=== PATIENT | female | born 2000 | race Caucasian/White ===

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

== ENCOUNTER 2023-01-13 13:22 | Observation (INO) | payer OTHER ==
[2023-01-13] MEDS ORDERED: SODIUM CHLORIDE 0.9% 1,000 ML IV ONE (13:51)
--- NOTE | 2023-01-13 13:54 | ED ---
General Adult HPI - General Chief complaint: Neuro Symptoms/Deficit Stated complaint: facial drop, arm numbness Time Seen by Provider: 01/13/23 13:40 Source: patient, RN notes reviewed, old records reviewed Mode of arrival: ambulatory Limitations: no limitations - History of Present Illness Initial comments: 22-year-old female presents for evaluation of left-sided facial droop and arm numbness. Patient states her symptoms began approximately 12:30 PM. She states that one week ago she was diagnosed with coronavirus. She denied any preceding symptoms. She does have a history of migraine headache and states she has a headache at this time although it is mild. She noticed initially that her left arm was numb followed by her right arm being numb. She states that currently only her right arm is numb. She denies focal weakness or speech abnormalities. She denies symptoms in the legs. - Related Data Home Medications Medication Instructions Recorded Confirmed traZODone HCL 50 mg PO HS 12/23/15 01/13/23 clonazePAM [KlonoPIN] 0.5 mg PO DAILY PRN 12/23/17 01/13/23 Albuterol Inhaler [Ventolin Hfa 1 - 2 puff INHALATION RT-Q6H PRN 01/13/23 01/13/23 Inhaler] DULoxetine HCL [Cymbalta] 60 mg PO DAILY 01/13/23 01/13/23 Galcanezumab-Gnlm [Emgality Pen] 120 mg SQ Q30D 01/13/23 01/13/23 Previous Rx's Medication Instructions Recorded Famotidine [Pepcid] 20 mg PO BID 10 Days #20 tab 01/14/23 predniSONE 10 mg PO DIRECTED #45 tab 01/14/23 valACYclovir HCL [Valtrex] 1,000 mg PO TID #20 tablet 01/14/23 Allergies Allergy/AdvReac Type Severity Reaction Status Date / Time azithromycin [From Zithromax] Allergy Rash/Hives Verified 01/13/23 14:41 sulfamethoxazole Allergy Rash/Hives Verified 01/13/23 14:41 [From Bactrim] trimethoprim [From Bactrim] Allergy Rash/Hives Verified 01/13/23 14:41 Review of Systems ROS Statement: Those systems with pertinent positive or pertinent negative responses have been documented in the HPI. ROS Other: All systems not noted in ROS Statement are negative. Past Medical History Past Medical History: Seizure Disorder Additional Past Medical History / Comment(s): grew out of them before the age of 11 was last seizure History of Any Multi-Drug Resistant Organisms: None Reported Past Surgical History: No Surgical Hx Reported Additional Past Surgical History / Comment(s): left breast abcess 03/20/2016 Additional Past Anesthesia/Blood Transfusion Reaction / Comment(s): NEVER HAD Past Psychological History: Anxiety, Depression Smoking Status: Never smoker Past Alcohol Use History: Occasional Past Drug Use History: None Reported - Past Family History Father Family Medical History: No Reported History Mother Family Medical History: No Reported History Sister(s) History Unknown: Yes Family Medical History: Diabetes Mellitus Additional Family Medical History / Comment(s): SISTER REJI General Exam Limitations: no limitations General appearance: alert, in no apparent distress Head exam: Present: atraumatic, normocephalic Eye exam: Present: normal appearance, PERRL ENT exam: Present: normal exam Neck exam: Present: normal inspection. Absent: tenderness, meningismus Respiratory exam: Present: normal lung sounds bilaterally. Absent: respiratory distress Cardiovascular Exam: Present: normal rhythm, tachycardia GI/Abdominal exam: Present: soft. Absent: distended, tenderness, guarding, rebound Extremities exam: Present: normal inspection, normal capillary refill Neurological exam: Present: alert, oriented X3, other (Right arm numbness, left-sided facial droop, NIH of 2). Absent: CN II-XII intact Psychiatric exam: Present: normal affect, normal mood Skin exam: Present: warm, dry, intact Course Vital Signs 01/13/23 01/13/23 01/13/23 13:27 14:21 14:30 Temperature 99.3 F Pulse Rate 127 H 104 H 95 Respiratory 18 20 17 Rate Blood Pressure 141/101 125/89 O2 Sat by Pulse 99 97 97 Oximetry 01/13/23 01/13/23 01/13/23 15:00 15:30 16:00 Temperature Pulse Rate 98 99 98 Respiratory 19 15 15 Rate Blood Pressure 124/89 128/86 O2 Sat by Pulse 99 98 99 Oximetry 01/13/23 16:30 Temperature Pulse Rate 100 Respiratory 18 Rate Blood Pressure 121/82 O2 Sat by Pulse 98 Oximetry - Reevaluation(s) Reevaluation #1: 01/13/23 14:[address] Anand covering for stroke intervention. Given the low NIH and likelihood of Sykes's palsy. No TPA recommended at this time. Medical management and MRI recommended. Medical Decision Making - Medical Decision Making Was pt. sent in by a medical professional or institution (JERRICA Chapman, [employer]PERATOR, urgent care, hospital, or detention...) When possible be specific @ -No Did you speak to anyone other than the patient for history (EMS, parent, family, police, friend...)? What history was obtained from this source @ -No Did you review nursing and triage notes (agree or disagree)? Why? @ -I reviewed and agree with nursing and triage notes Were old charts reviewed (outside hosp., previous admission, EMS record, old EKG, old radiological studies, urgent care reports/EKG's, detention records)? Report findings @ -No old charts were reviewed Differential Diagnosis (chest pain, altered mental status, abdominal pain women, abdominal pain men, vaginal bleeding, weakness, fever, dyspnea, syncope, headache, dizziness, GI bleed, back pain, seizure, CVA, palpatations, mental health, musculoskeletal)? @ -Differential CVA Ischemic stroke, hemorrhagic stroke, brain tumor, atypical migraine, Wernicke's encephalopathy, seizure, multiple sclerosis, meningitis, encephalitis, hypoglycemia, Guillain-Lara, electrolytes disturbance, myasthenia gravis.... This is not meant to be an all-inclusive list EKG interpreted by me (3pts min.). @ Sinus tachycardia rate of 108, WA interval 140, QRS duration 82, QTC [address] segment changes. X-rays interpreted by me (1pt min.). @ -None done CT interpreted by me (1pt min.). @ -[CT brain negative for intracranial hemorrhage or mass effect, CTA negative for intracranial occlusion or stenosis, no aneurysmal change U/S interpreted by me (1pt. min.). @ -None done What testing was considered but not performed or refused? (CT, X-rays, U/S, labs)? Why? @ -None What meds were considered but not given or refused? Why? @ -None Did you discuss the management of the patient with other professionals (professionals i.e. JERRICA Chapman, [employer]PERATOR, lab, RT, psych nurse, social work assistant, quality officer, teacher, sergeant of officers, manager of case management)? Give summary @ -Yes, discussed case with Dr. Dotson Was smoking cessation discussed for >3mins.? @ -No Was critical care preformed (if so, how long)? @ -No Were there social determinants of health that impacted care today? How? (Homelessness, low income, unemployed, alcoholism, drug addiction, transportation, low edu. Level, literacy, decrease access to med. care, fdc, rehab)? @ -No Was there de-escalation of care discussed even if they declined (Discuss DNR or withdrawal of care, Hospice)? DNR status @ -No What co-morbidities impacted this encounter? (DM, HTN, Smoking, COPD, CAD, Cancer, CVA, ARF, Chemo, Hep., AIDS, mental health diagnosis, sleep apnea, morbid obesity)? @ -None Was patient admitted / discharged? Hospital course, mention meds given and route, prescriptions, significant lab abnormalities, going to OR and other perti nent info. @ -22-year-old female presenting with acute left-sided facial droop. Patient does have very minor involvement of the forehead and brow. I suspect this will be a developing Sykes's palsy however the patient had also complained of right arm numbness. Initial NIH of 2. She was a stroke activation given the limbs symptoms. CAT scan without contrast and CT angiography were negative. Normal laboratory testing. Patient will be treated both for the likelihood of a de veloping Sykes's palsy as well as acute CVA with aspirin. She'll be admitted for MRI and neurology consultation. Undiagnosed new problem with uncertain prognosis? @ -No Drug Therapy requiring intensive monitoring for toxicity (Heparin, Nitro, I nsulin, Cardizem)? @ -No Were any procedures done? @ -No Diagnosis/symptom? @ -Facial droop, rule out CVA Acute, or Chronic, or Acute on Chronic? @ -Acute Uncomplicated (without systemic symptoms) or Complicated (systemic symptoms)? @ -default Side effects of treatment? @ -No Exacerbation, Progression, or Severe Exacerbation? @ -No Poses a threat to life or bodily function? How? (Chest pain, [place], [place], pneumonia, PE, COPD, DKA, ARF, appy, cholecystitis, CVA, Diverticulitis, Homicidal, Suicidal, threat to staff... and all critical care pts) @ -[low risk - Lab Data Result diagrams: 01/14/23 08:28 01/14/23 08:28 Lab Results 01/13/23 01/13/23 01/13/23 Range/Units 13:31 13:51 13:51 WBC 10.5 (3.8-10.6) k/uL RBC 4.24 (3.80-5.40) m/uL Hgb 13.7 (11.4-16.0) gm/dL Hct 38.5 (34.0-46.0) % MCV 90.8 (80.0-100.0) fL MCH 32.4 (25.0-35.0) pg MCHC 35.7 (31.0-37.0) g/dL RDW 12.2 (11.5-15.5) % Plt Count 313 (150-450) k/uL MPV 7.0 Neutrophils % 71 % Lymphocytes % 21 % Monocytes % 5 % Eosinophils % 1 % Basophils % 1 % Neutrophils # 7.5 (1.3-7.7) k/uL Lymphocytes # 2.2 (1.0-4.8) k/uL Monocytes # 0.5 (0-1.0) k/uL Eosinophils # 0.1 (0-0.7) k/uL Basophils # 0.1 (0-0.2) k/uL PT 10.3 (10.0-12.5) sec INR 0.9 (<1.2) APTT 24.5 (22.0-30.0) sec Sodium (137-145) mmol/L Potassium (3.5-5.1) mmol/L Chloride (98-107) mmol/L Carbon Dioxide (22-30) mmol/L Anion Gap mmol/L BUN (7-17) mg/dL Creatinine (0.52-1.04) mg/dL Est GFR (CKD-EPI)AfAm (>60 ml/min/1.73 sqM) Est GFR (CKD-EPI)NonAf (>60 ml/min/1.73 sqM) Glucose (74-99) mg/dL Estimated Ave Glu mg/dL 97 mg/dL Hemoglobin A1c 5.0 (<=6.0) % Calcium (8.4-10.2) mg/dL Total Bilirubin (0.2-1.3) mg/dL AST (14-36) U/L ALT (4-34) U/L Alkaline Phosphatase (38-126) U/L Creatine Kinase (30-135) U/L Troponin I (0.000-0.034) ng/mL Total Protein (6.3-8.2) g/dL Albumin (3.5-5.0) g/dL Urine Color Urine Appearance (Clear) Urine pH (5.0-8.0) Ur Specific [place] (1.001-1.035) Urine Protein (Negative) Urine Glucose (UA) (Negative) Urine Ketones (Negative) Urine Blood (Negative) Urine Nitrite (Negative) Urine Bilirubin (Negative) Urine Urobilinogen (<2.0) mg/dL Ur Leukocyte Esterase (Negative) Urine RBC (0-5) /hpf Urine WBC (0-5) /hpf Ur Squamous Epith Cells (0-4) /hpf Urine Bacteria (None) /hpf Urine Mucus (None) /hpf Urine Opiates Screen (NotDetected) Ur Oxycodone Screen (NotDetected) Urine Methadone Screen (NotDetected) Ur Propoxyphene Screen (NotDetected) Ur Barbiturates Screen (NotDetected) U Tricyclic Antidepress (NotDetected) Ur Phencyclidine Scrn (NotDetected) Ur Amphetamines Screen (NotDetected) U Methamphetamines Scrn (NotDetected) U Benzodiazepines Scrn (NotDetected) Urine Cocaine Screen (NotDetected) U Marijuana (THC) Screen (NotDetected) 01/13/23 01/13/23 01/13/23 Range/Units 13:51 13:51 13:51 WBC (3.8-10.6) k/uL RBC (3.80-5.40) m/uL Hgb (11.4-16.0) gm/dL Hct (34.0-46.0) % MCV (80.0-100.0) fL MCH (25.0-35.0) pg MCHC (31.0-37.0) g/dL RDW (11.5-15.5) % Plt Count (150-450) k/uL MPV Neutrophils % % Lymphocytes % % Monocytes % % Eosinophils % % Basophils % % Neutrophils # (1.3-7.7) k/uL Lymphocytes # (1.0-4.8) k/uL Monocytes # (0-1.0) k/uL Eosinophils # (0-0.7) k/uL Basophils # (0-0.2) k/uL PT (10.0-12.5) sec INR (<1.2) APTT (22.0-30.0) sec Sodium 137 (137-145) mmol/L Potassium 3.6 (3.5-5.1) mmol/L Chloride 100 (98-107) mmol/L Carbon Dioxide 28 (22-30) mmol/L Anion Gap 9 mmol/L BUN 12 (7-17) mg/dL Creatinine 0.68 (0.52-1.04) mg/dL Est GFR (CKD-EPI)AfAm >90 (>60 ml/min/1.73 sqM) Est GFR (CKD-EPI)NonAf >90 (>60 ml/min/1.73 sqM) Glucose 108 H (74-99) mg/dL Estimated Ave Glu mg/dL mg/dL Hemoglobin A1c (<=6.0) % Calcium 9.6 (8.4-10.2) mg/dL Total Bilirubin 0.4 (0.2-1.3) mg/dL AST 30 (14-36) U/L ALT 31 (4-34) U/L Alkaline Phosphatase 57 (38-126) U/L Creatine Kinase 36 (30-135) U/L Troponin I <0.012 (0.000-0.034) ng/mL Total Protein 7.3 (6.3-8.2) g/dL Albumin 4.4 (3.5-5.0) g/dL Urine Color Colorless Urine Appearance Cloudy H (Clear) Urine pH 6.5 (5.0-8.0) Ur Specific [place] 1.010 (1.001-1.035) Urine Protein Negative (Negative) Urine Glucose (UA) Negative (Negative) Urine Ketones Negative (Negative) Urine Blood Trace H (Negative) Urine Nitrite Negative (Negative) Urine Bilirubin Negative (Negative) Urine Urobilinogen <2.0 (<2.0) mg/dL Ur Leukocyte Esterase Moderate H (Negative) Urine RBC 3 (0-5) /hpf Urine WBC 5 (0-5) /hpf Ur Squamous Epith Cells 7 H (0-4) /hpf Urine Bacteria Many H (None) /hpf Urine Mucus Rare H (None) /hpf Urine Opiates Screen Not Detected (NotDetected) Ur Oxycodone Screen Not Detected (NotDetected) Urine Methadone Screen Not Detected (NotDetected) Ur Propoxyphene Screen Not Detected (NotDetected) Ur Barbiturates Screen Not Detected (NotDetected) U Tricyclic Antidepress Not Detected (NotDetected) Ur Phencyclidine Scrn Not Detected (NotDetected) Ur Amphetamines Screen Not Detected (NotDetected) U Methamphetamines Scrn Not Detected (NotDetected) U Benzodiazepines Scrn Not Detected (NotDetected) Urine Cocaine Screen Not Detected (NotDetected) U Marijuana (THC) Screen Not Detected (NotDetected) Critical Care Time Critical Care Time: Yes Total Critical Care Time: 35 Disposition Clinical Impression: Facial droop, Cerebrovascular accident (CVA) Disposition: ADMITTED IP TO THIS [facility] Condition: Stable Is patient prescribed a controlled substance at d/c from ED?: No Time of Disposition: 14:52
[2023-01-13 14:01] LABS: Basophils # (A) 0.1 k/uL (0-0.2); Basophils % (A) 1 %; Eosinophils # (A) 0.1 k/uL (0-0.7); Eosinophils % (A) 1 %; HCT 38.5 % (34.0-46.0); HGB 13.7 gm/dL (11.4-16.0); Lymphocytes # (A) 2.2 k/uL (1.0-4.8); Lymphocytes % (A) 21 %; MCH 32.4 pg (25.0-35.0); MCHC 35.7 g/dL (31.0-37.0); MCV 90.8 fL (80.0-100.0); Monocytes # (A) 0.5 k/uL (0-1.0); Monocytes % (A) 5 %; Neutrophils # (A) 7.5 k/uL (1.3-7.7); Neutrophils % (A) 71 %; Platelet Count 313 k/uL (150-450); RBC 4.24 m/uL (3.80-5.40); RDW 12.2 % (11.5-15.5); WBC 10.5 k/uL (3.8-10.6)
[2023-01-13 14:11] LABS: ALT 31 U/L (4-34); AST 30 U/L (14-36); African American GFR (CKD) >90 (>60 ml/min/1.73 sqM); Albumin 4.4 g/dL (3.5-5.0); Alkaline Phosphatase 57 U/L (38-126); Anion Gap 9 mmol/L; Blood Urea Nitrogen 12 mg/dL (7-17); Calcium 9.6 mg/dL (8.4-10.2); Carbon Dioxide 28 mmol/L (22-30); Chloride 100 mmol/L (98-107); Creatine Kinase 36 U/L (30-135); Glucose 108 mg/dL (74-99); Non-African American GFR(CKD) >90 (>60 ml/min/1.73 sqM); Potassium 3.6 mmol/L (3.5-5.1); Sodium 137 mmol/L (137-145); Total Bilirubin 0.4 mg/dL (0.2-1.3); Total Protein 7.3 g/dL (6.3-8.2)
[2023-01-13 14:24] LABS: INR 0.9 (<1.2); Partial Thromboplastin Time 24.5 sec (22.0-30.0); Prothrombin Time 10.3 sec (10.0-12.5)
--- NOTE | 2023-01-13 14:29 | CT ---
EXAMINATION TYPE: CT brain wo con DATE OF EXAM: 01/13/2023 COMPARISON: None HISTORY: 22-year-old female code stroke. Rt side facial droop TECHNIQUE: Examination was done in axial plane without intravenous contrast. Coronal and sagittal r econstructions performed. CT DLP: 1113.5 mGycm Automated exposure control for dose reduction was used. FINDINGS: There is no evidence of acute intracranial hemorrhage, acute ischemic changes, mass, mass-effect, or extra-axial fluid collection. There is no effacement of cerebral sulci or basal subarachnoid cister ns. There is no hydrocephalus. There is no midline shift. Navarrete-white matter distinction is preserv ed. Paranasal sinuses and mastoid air cells well pneumatized. Orbits and globes are intact. IMPRESSION: No acute intracranial abnormality seen.
[2023-01-13] MEDS ORDERED: ASPIRIN 325 MG TAB PO STA (14:34)
[2023-01-13] MEDS ORDERED: valACYclovir HCL 1,000 MG TABLET PO STA (14:34)
[2023-01-13] MEDS ORDERED: predniSONE 20 MG TAB PO STA (14:34)
[2023-01-13 14:38] LABS: Appearance,Urine Cloudy (Clear); Bacteria,Urine Many /hpf; Bilirubin,Urine Negative (Negative); Blood,Urine Trace (Negative); Color,Urine Colorless; Glucose,Urine (UA) Negative (Negative); Ketones,Urine Negative (Negative); Leukocyte Esterase,Urine Moderate (Negative); Mucus,Urine Rare /hpf; Nitrite,Urine Negative (Negative); PH, Urine 6.5 (5.0-8.0); Protein,Urine Negative (Negative); RBC,Urine 3 /hpf (0-5); Squamous Epithelial Cell,Urine 7 /hpf (0-4); Urobilinogen,Urine <2.0 mg/dL (<2.0); WBC,Urine 5 /hpf (0-5)
--- NOTE | 2023-01-13 14:38 | CT ---
EXAMINATION TYPE: CT angio head neck DATE OF EXAM: 01/13/2023 COMPARISON: None HISTORY: 22-year-old female Neuro Deficit, acute, stroke suspected TECHNIQUE: Contiguous axial scanning of the head and neck performed with IV Contrast, patient injecte d with 65 ml mL of Isovue 370. Coronal/sagittal reconstructions performed. 3-D reconstructions genera michaela on a dedicated independent workstation. CT DLP: 716.7 mGycm Automated exposure control for dose reduction was used. FINDINGS: Neck: Conventional arch vessel branching anatomy. The vertebral arteries are codominant and patent throughout their course. The right common and bilateral internal carotid arteries are widely patent. NASCET criteria is utilized. Moderate bilateral palatine tonsillar hypertrophy. Mild tonsillar hypertrophy. Head: The vertebral arteries are codominant. Both vertebral and basilar arteries are patent There is a prominent contribution from a left posterior communicating artery. Posterior circulation o therwise patent. The internal carotid arteries and remainder of the anterior circulation appears patent. No aneurysmal change is identified. Dural venous sinuses are patent. IMPRESSION: 1. NECK: WIDELY PATENT VERTEBRAL AND CAROTID ARTERIES OF THE NECK. 2. HEAD: NO LARGE VESSEL INTRACRANIAL ARTERIAL OCCLUSION, SIGNIFICANT STENOSIS, OR ANEURYSMAL CHANGE IS SEEN.
[2023-01-13 14:40] LABS: Amphetamine Screen,Urine Not Detected (NotDetected); Barbiturate Screen,Urine Not Detected (NotDetected); Benzodiazepines Screen,Urine Not Detected (NotDetected); Cocaine Screen,Urine Not Detected (NotDetected); Methadone Screen, Urine Not Detected (NotDetected); Opiate Screen,Urine Not Detected (NotDetected); Oxycodone Screen, Urine Not Detected (NotDetected); Phencyclidine Screen,Urine Not Detected (NotDetected); Tricyclic Antidepressant,Urine Not Detected (NotDetected); Urn Cannabinoid Scrn Not Detected (NotDetected)
[2023-01-13] MEDS ORDERED: clonazePAM 0.5 MG TAB PO PRN (14:49)
[2023-01-13] MEDS ORDERED: ALBUTEROL NEBULIZED 2.5 MG/3 ML INHALATION PRN (14:49)
[2023-01-13] MEDS ORDERED: FLUCONAZOLE 100 MG TAB PO SCH (15:00)
[2023-01-13] MEDS ORDERED: ALBUTEROL HFA INHALER INHALATION PRN (18:02)
[2023-01-13] MEDS ORDERED: traZODone HCL 50 MG TAB PO SCH (21:00)
[2023-01-13] MEDS: DULoxetine HCL 60 MG CAPSULE.DR PO SCH (23:25)
[2023-01-14 04:59] VITALS: RESP 16
--- NOTE | 2023-01-14 07:57 | CA ---
Transthoracic Echo Report Name: Nehal Nieto Age: 22 Gender: F : 2000 Exam Date: 01/13/2023 15:30 Exam Location: [facility] Ht (in): 62 Wt (lb): 216 Ordering Physician: Kp Ryan MD Attending/Referring Phys: [id number], [employer] Estimator Cris Jacome RDCS Procedure CPT: Indications: Thrombus Cardiac Hx: Technical Quality: Good Contrast 1: Agitated Saline Total Dose (mL): 10 Contrast 2: Total Dose (mL): MEASUREMENTS (Male / Female) Normal Values 2D ECHO LV Diastolic Diameter PLAX 4.7 cm 4.2 - 5.9 / 3.9 - 5.3 cm LV Systolic Diameter PLAX 3.5 cm IVS Diastolic Thickness 1.0 cm 0.6 - 1.0 / 0.6 - 0.9 cm LVPW Diastolic Thickness 1.1 cm 0.6 - 1.0 / 0.6 - 0.9 cm LV Relative Wall Thickness 0.4 RV Internal Dim ED PLAX 2.7 cm LA Systolic Diameter LX 3.7 cm 3.0 - 4.0 / 2.7 - 3.8 cm LA Volume 46.1 cm??? 18 - 58 / 22 - 52 cm??? LA Volume Index 21.7 cm???/m??? 16 - 28 cm???/m??? M-MODE Aortic Root Diameter MM 3.0 cm MV E Point Septal Separation 0.5 cm AV Cusp Separation MM 2.3 cm DOPPLER AV Peak Velocity 131.0 cm/s AV Peak Gradient 6.9 mmHg MV Area PHT 3.8 cm??? Mitral E Point Velocity 80.4 cm/s Mitral A Point Velocity 72.9 cm/s Mitral E to A Ratio 1.1 MV Deceleration Time 197.9 ms MV E' Velocity 11.1 cm/s Mitral E to MV E' Ratio 7.2 FINDINGS Left Ventricle Left ventricular ejection fraction is estimated at 55-60 %. Left ventricular cavity size normal. Left ventricular wall thickness normal. Right Ventricle Normal right ventricular size. Unable to estimate the right ventricular systolic pressure. Right Atrium Normal right atrial size. Negative agitated saline bubble study for right to left shunt. Left Atrium Normal left atrial size, probable patent foramen ovale Mitral Valve Structurally normal mitral valve. Trace mitral regurgitation. Aortic Valve Trileaflet aortic valve. No aortic valve stenosis or regurgitation. Tricuspid Valve Structurally normal tricuspid valve. No tricuspid stenosis, regurgitation or prolapse. Pulmonic Valve Structurally normal pulmonic valve. Trace pulmonic regurgitation. Pericardium No pericardial effusion. Aorta Normal size aortic root and proximal ascending aorta. CONCLUSIONS Normal LV size and systolic function. No significant abnormality on the Doppler exam. No pericardial effusion. Bubble study is negative for shunt Previewed by: Dr. Db Armenta MD (Electronically Signed) Final Date: 14 January 2023 07:56
--- NOTE | 2023-01-14 08:22 | P.HPIM ---
History of Present Illness This is a pleasant 22 years old female with past medical history of seizure 1, currently not on seizure medication, migraine on monthly injection, her neurologist is Dr. Anne, last injection and she received by herself was yeste rday. Anxiety and depression and follow-up with her psychiatrist as an outpatient but she denies any suicidal or homicidal ideation. Presents because of left sided weakness of the face. A survey she noticed she spell and water when she drinks, she took a picture consented for her father who is a nurse was advised her to come to emergency room. Patient went smiles there is left facial droop. She has some mild fuzziness in the left sides as she described bile she denies any weakness in the left arm or leg on she denies any numbness or tingling as well. She had some blurred vision earlier but now is back to normal as she describes.Difficulty. Mild headache but no dizziness. She denies any other neurological complaints. She denies GI symptoms. No chest pain or dyspnea. Her urinalysis was concentrated sample but patient denies any urinary symptoms. No urgency, dysuria or change in frequency. No hematuria. No fever or leukocytosis. Patient denies smoking She drinks alcohol 3 times a month and is uses marijuana at times. She is afebrile labs including CBC, INR BMP and liver enzymes were unremarkable. Urine drug screen is negative. CT of the brain: Negative process Details of the head of neck no significant stenosis or aneurysmal dilatation. No fracture or dislocation. No acute process as well. Echo: EF 55-60% urine test is negative Patient received antiviral and prednisone in the emergency room. Review of Systems Review of systems CONSTITUTIONAL: No fever, no malaise, no fatigue. HEENT: No recent visual problems or hearing problems. Denied any sore throat. CARDIOVASCULAR: No orthopnea, PND, no palpitations, no syncope. PULMONARY: No shortness of breath, no cough, no hemoptysis. GASTROINTESTINAL: No diarrhea, no nausea, no vomiting, no abdominal pain. Normoactive bowel sounds. NEUROLOGICAL: No headaches, no weakness, no numbness. HEMATOLOGICAL: Denies any bleeding or petechiae. GENITOURINARY: Denies any burning micturition, frequency, or urgency. MUSCULOSKELETAL/RHEUMATOLOGICAL: Denies any joint pain, swelling, or any muscle pain. ENDOCRINE: Denies any polyuria or polydipsia. Past Medical History Past Medical History: Seizure Disorder Additional Past Medical History / Comment(s): grew out of them before the age of 11 was last seizure History of Any Multi-Drug Resistant Organisms: None Reported Past Surgical History: No Surgical Hx Reported Additional Past Surgical History / Comment(s): RIGHT breast abcess 03/20/2016 Additional Past Anesthesia/Blood Transfusion Reaction / Comment(s): NEVER HAD Past Psychological History: Anxiety, Depression Smoking Status: Never smoker Past Alcohol Use History: Occasional Past Drug Use History: None Reported - Past Family History Father Family Medical History: No Reported History Mother Family Medical History: No Reported History Sister(s) History Unknown: Yes Family Medical History: Diabetes Mellitus Additional Family Medical History / Comment(s): SISTER REJI Medications and Allergies Home Medications Medication Instructions Recorded Confirmed Type traZODone HCL 50 mg PO HS 12/23/15 01/13/23 History clonazePAM [KlonoPIN] 0.5 mg PO DAILY PRN 12/23/17 01/13/23 History Albuterol Inhaler [Ventolin Hfa 1 - 2 puff INHALATION RT-Q6H PRN 01/13/23 History Inhaler] DULoxetine HCL [Cymbalta] 60 mg PO DAILY 01/13/23 01/13/23 History Fluconazole 200 mg PO DAILY 01/13/23 01/13/23 History Galcanezumab-Gnlm [Emgality Pen] 120 mg SQ Q30D 01/13/23 01/13/23 History Allergies Allergy/AdvReac Type Severity Reaction Status Date / Time azithromycin [From Zithromax] Allergy Rash/Hives Verified 01/13/23 14:41 sulfamethoxazole Allergy Rash/Hives Verified 01/13/23 14:41 [From Bactrim] trimethoprim [From Bactrim] Allergy Rash/Hives Verified 01/13/23 14:41 Physical Exam Vitals: Vital Signs Temp Pulse Pulse Resp BP BP Pulse Ox 01/14/23 04:00 98.2 F 72 16 110/70 98 01/14/23 02:00 102 H 16 01/14/23 00:00 98.3 F 102 H 16 117/70 98 01/13/23 20:00 98.6 F 110 H 16 123/75 96 11/15/23 16:30 100 18 121/82 98 01/13/23 16:00 98 15 128/86 99 01/13/23 15:30 99 15 98 01/13/23 15:00 98 19 124/89 99 01/13/23 14:30 95 17 125/89 97 01/13/23 14:21 104 H 20 97 01/13/23 13:27 99.3 F 127 H 18 141/101 99 Intake and Output 01/13/23 01/13/23 01/14/23 14:59 22:59 06:59 Intake Total 240 Balance 240 Intake: Oral 240 Other: # Voids 1 Weight 97.976 kg 97.976 kg GENERAL: The patient is alert and oriented x3, not in any acute distress. Obese HEENT: Pupils are round and equally reacting to light. EOMI. No scleral icterus. No conjunctival pallor. Normocephalic, atraumatic. No pharyngeal erythema. No thyromegaly. CARDIOVASCULAR: S1 and S2 present. No murmurs, rubs, or gallops. PULMONARY: Chest is clear to auscultation, no wheezing , no crackles. ABDOMEN: Soft, nontender, nondistended, normoactive bowel sounds. No palpable organomegaly. MUSCULOSKELETAL: No joint swelling or deformity. EXTREMITIES: No cyanosis, clubbing, or pedal edema. NEUROLOGICAL: Gross neurological examination did not reveal any focal deficits. SKIN: No rashes. no petechiae. 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 History of seizure, long time ago when she was younger, currently not on seizure medication Substance abuse with marijuana Plan: Continue with valcyclovir and oral prednisone for one week MRI of the brain is pending Aspirin is started. Neurology consult. Labs and medication were reviewed.. Continue same treatment. Continue with symptomatic treatment. Resume home medication. Monitor labs and vitals. DVT and GI prophylaxis. Further recommendations as per clinical course of the patient DVT prophylaxis: Subcutaneous heparin GI Prophylaxis: Pepcid Prognosis is guarded
[2023-01-14] MEDS ORDERED: predniSONE 20 MG TAB PO SCH (09:00)
[2023-01-14] MEDS ORDERED: HEPARIN SODIUM,PORCINE 5,000 UNIT/ML 1 ML VIAL SQ SCH (09:00)
[2023-01-14] MEDS ORDERED: ASPIRIN 325 MG TAB PO SCH (09:00)
[2023-01-14] MEDS ORDERED: FAMOTIDINE 20 MG/2 ML VIAL IV SCH (09:00)
[2023-01-14] MEDS: SODIUM CHLORIDE 0.9% 1,000 ML IV SCH ×3 (09:28→14:57)
[2023-01-14] MEDS: DULoxetine HCL 60 MG CAPSULE.DR PO SCH (09:29)
[2023-01-14 09:31] LABS: Basophils % (A) 0 %; Eosinophils % (A) 0 %; HCT 36.1 % (34.0-46.0); HGB 12.6 gm/dL (11.4-16.0); Lymphocytes # (A) 1.9 k/uL (1.0-4.8); Lymphocytes % (A) 11 %; MCH 32.1 pg (25.0-35.0); MCHC 34.9 g/dL (31.0-37.0); MCV 91.9 fL (80.0-100.0); Mean Platelet Volume 6.7; Monocytes % (A) 6 %; Neutrophils # (A) 13.7 k/uL (1.3-7.7); Neutrophils % (A) 81 %; Platelet Count 320 k/uL (150-450); RBC 3.92 m/uL (3.80-5.40); RDW 12.3 % (11.5-15.5); WBC 16.8 k/uL (3.8-10.6)
[2023-01-14] MEDS: valACYclovir HCL 1,000 MG TABLET PO SCH ×2 (09:32→18:21)
[2023-01-14 09:50] LABS: HCG,Qualitative Serum Not Detected
[2023-01-14 09:53] LABS: African American GFR (CKD) >90 (>60 ml/min/1.73 sqM); Anion Gap 12 mmol/L; Blood Urea Nitrogen 10 mg/dL (7-17); Calcium 9.1 mg/dL (8.4-10.2); Carbon Dioxide 22 mmol/L (22-30); Chloride 105 mmol/L (98-107); Glucose 115 mg/dL (74-99); Magnesium 1.7 mg/dL (1.6-2.3); Non-African American GFR(CKD) >90 (>60 ml/min/1.73 sqM); Potassium 3.3 mmol/L (3.5-5.1); Sodium 139 mmol/L (137-145)
--- NOTE | 2023-01-14 10:22 | P.CNNES ---
History of Present Illness Consult date: 01/13/23 Requesting physician: Kp Ryan Reason for Consult: Patient weakness, Sykes's palsy versus CVA History of Present Illness: Patient is a 22-year-old right-handed female came to the hospital today at 1:22 PM for possible CVA versus Sykes's palsy. Patient states that about 1-1/2 weeks ago, she suffered from Covid infection, although she is vaccinated with 2 doses of Pfizer vaccine. Patient states that today she woke up with a 7/10 headache, bioccipital region that extends to the biparietal region. At around 12:30 PM while she was in the class and while she was drinking water, she started drooling from the side of the mouth. She is not sure from which side. She looked in the mirror and her face was droopy. She also noticed numbness in the upper arm region, at first involving the left upper arm and that extended to the right upper arm. Denies any paresthesias of the legs, any slurred speech or any problem with the vision or gait. Patient is noticing slightly excessive tearing from both sides, left more than right. Denies any hyperacusis, or any alteration of the taste sensation. Vital signs on arrival blood pressure 141/101, pulse rate 127, temperature 99.3. Her blood test shows normal CBC, PT/PTT, normal CMP, troponin, CK, negative hCG, UA shows moderate amount of leukocyte Estrace. Urine drug screen negative. 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 She used to see Dr. Tan for migraines and currently takes Emgality. Patient had an MRI of the brain performed 2 months ago which was normal. Patient drinks alcohol about 3 times a month. Denies any tobacco, any hypertension diabetes and does not use any control pills. EKG shows sinus tachycardia. CT head showed no acute intracranial process. Paranasal sinuses are clear. I personally reviewed CT head agree with the findings. Review of Systems Constitutional: Reports weight gain, Denies chills, Denies fever Eyes: bilateral diplopia (Driving here had some double vision), denies blurred vision, denies pain Ears: deny: decreased hearing, ear discharge Ears, nose, mouth and throat: Reports headache, Denies nasal congestion, Denies sore throat Cardiovascular: Denies chest pain, Denies shortness of breath Respiratory: Denies cough, Denies excessive sputum Gastrointestinal: Reports nausea, Denies abdominal pain, Denies diarrhea, Denies vomiting Genitourinary: Denies dysuria, Denies hematuria, Denies urge incontinence, Denies urgency Musculoskeletal: Reports low back pain (Since Covid), Reports neck pain, Denies myalgias Integumentary: Denies pruritus, Denies rash Neurological: Reports as per HPI Psychiatric: Reports anxiety, Reports depression Endocrine: Reports fatigue, Reports weight change Past Medical History Past Medical History: Seizure Disorder Additional Past Medical History / Comment(s): grew out of them before the age of 11 was last seizure History of Any Multi-Drug Resistant Organisms: None Reported Past Surgical History: No Surgical Hx Reported Additional Past Surgical History / Comment(s): left breast abcess 03/20/2016 Additional Past Anesthesia/Blood Transfusion Reaction / Comment(s): NEVER HAD Past Psychological History: Anxiety, Depression Smoking Status: Never smoker Past Alcohol Use History: Occasional Past Drug Use History: None Reported - Past Family History Father Family Medical History: No Reported History Mother Family Medical History: No Reported History Sister(s) History Unknown: Yes Family Medical History: Diabetes Mellitus Additional Family Medical History / Comment(s): SISTER REJI Medications and Allergies Home Medications Medication Instructions Recorded Confirmed Type traZODone HCL 50 mg PO HS 12/23/15 01/13/23 History clonazePAM [KlonoPIN] 0.5 mg PO DAILY PRN 12/23/17 01/13/23 History Albuterol Inhaler [Ventolin Hfa 1 - 2 puff INHALATION RT-Q6H PRN 01/13/23 History Inhaler] DULoxetine HCL [Cymbalta] 60 mg PO DAILY 01/13/23 01/13/23 History Fluconazole 200 mg PO DAILY 01/13/23 01/13/23 History Galcanezumab-Gnlm [Emgality Pen] 120 mg SQ Q30D 01/13/23 01/13/23 History Allergies Allergy/AdvReac Type Severity Reaction Status Date / Time azithromycin [From Zithromax] Allergy Rash/Hives Verified 01/13/23 14:41 sulfamethoxazole Allergy Rash/Hives Verified 01/13/23 14:41 [From Bactrim] trimethoprim [From Bactrim] Allergy Rash/Hives Verified 01/13/23 14:41 Physical Examination - Vital Signs Vital Signs: Vital Signs Temp Pulse Resp BP Pulse Ox 01/13/23 16:30 100 18 121/82 98 01/13/23 16:00 98 15 128/86 99 01/13/23 15:30 99 15 98 01/13/23 15:00 98 19 124/89 99 01/13/23 14:30 95 17 125/89 97 01/13/23 14:21 104 H 20 97 01/13/23 13:27 99.3 F 127 H 18 141/101 99 Intake and Output 01/13/23 01/13/23 01/13/23 06:59 14:59 22:59 Other: Weight 97.976 kg Patient is a young female, in no acute distress. Patient is alert awake oriented to time place and person. Speech and language functions are normal. Patient can name and repeat very well. No aphasia or dysarthria. Attention, concentration and fund of knowledge is adequate. On cranial nerve examination, pupils are equal, round and reacting to light, visual walters are full on confrontation, with no neglect on double simultaneous stimulation. Extraocular muscles are intact with no nystagmus. Patient has left facial weakness, peripheral type, with involvement of the forehead as well. Her tongue protrudes to the midline. Palatal elevation and sensation normal, hearing and shoulder shrug normal, facial sensation normal. On muscle strength testing, there is no pronator drift and the strength is normal in arms and legs distally and proximally. Deep tendon reflexes are symmetric 1+ at the biceps, 1+ brachioradialis, 2 at the knees, 1+ ankles and plantars downgoing bilaterally. Sensory to touch is equal with no neglect on double simultaneous stimulation. Patient was feeling slightly decreased sensation for touch in the left foot as compared to the right foot. Cerebellar function showed no ataxia for [id number] testing. No dysdiadochokinesia. No ataxia for [id number] testing on either side. Tone and bulk of muscles normal. Gait deferred.. On general examination, there is no carotid bruit or murmur, S1-S2 audible. Chest is clear on consultation. Abdomen is soft nontender. No organomegaly, bowel sounds present. Peripheral pulses are present. No peripheral edema. 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 This probably triggered by recent Covid infection. 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 * Patient is undergoing MRI of the brain. If negative, we will continue prednisone 60 mg daily for 5 days, and then decrease by 10 mg daily until off. * Valtrex 1 g 3 times a day for 7 days. * 2-D echo revealed normal left-ventricular size and systolic function. No significant abnormality on the Doppler. Bubble study is negative for shunt. Left atrial size is normal. * CTA of head and neck revealed widely patent vertebral and carotid arteries. No large vessel intracranial artery occlusion, significance stenosis or aneurysm. * Neurology will follow. Thank you for the consult.
[2023-01-14] MEDS ORDERED: Potassium Replacement Protocol 1 EACH MISC MISCELLANE PRN (13:45)
--- NOTE | 2023-01-14 13:56 | MR ---
EXAMINATION TYPE: MR brain wo con DATE OF EXAM: 01/14/2023 COMPARISON: CT brain 01/13/2023 HISTORY: Left facial droop, Neuro deficit, acute, stroke suspected CONTRAST: Performed utilizing 0 mL intravenous Gadavist gadolinium contrast. TECHNIQUE: Multiplanar, multiecho imaging on a 3.0 Kelsea magnet is performed through the brain. Stud y is performed within 24 hours of arrival to the hospital. The craniovertebral junction is normal. The pituitary is normal. Diffusion-weighted imaging is performed. No abnormal hyperintensity is present to suggest an acute i ntracranial infarct or acute ischemic change. No signal abnormality within the brain is evident. Deep white matter appears unremarkable. No dillan danielle or effacement of sulci or ventricles is evident. Ventricles and sulci are appropriate for the patient age. Petrous ridges appear unremarkable. Internal auditory canals and cerebellar pontine angles are normal . Optic chiasm is visualized is normal. There appear to be normal vascular flow voids present. IMPRESSION: 1. No acute abnormality MRI brain
[2023-01-14 16:18] LABS: Chol/HDL Ratio 3.74 Ratio; LDL Cholesterol,Calculated 111.7 mg/dL (0.0-131.0)
[2023-01-14 16:31] VITALS: BP 138/88; PULSE 114; TEMP 98.8
[2023-01-14] MEDS ORDERED: DULoxetine HCL 60 MG CAPSULE.DR PO SCH (21:00)
[2023-01-14] MEDS ORDERED: FAMOTIDINE 20 MG TAB PO SCH (21:00)
--- NOTE | 2023-01-18 16:56 | P.PN ---
Subjective Progress Note Date: 01/14/23 Patient was seen for a follow-up. Denies any new neurological symptoms. Patient continues to have left facial weakness. Objective - Vital Signs Vital signs: Vital Signs Temp 98.0 F 01/14/23 12:36 Pulse 108 H 01/14/23 12:36 Resp 16 01/14/23 12:36 BP 136/84 01/14/23 12:36 Pulse Ox 97 01/14/23 12:36 FiO2 Intake & Output 01/13/23 01/14/23 01/14/23 18:59 06:59 18:59 Intake Total 240 210 Balance 240 210 Weight 97.976 kg 97.976 kg Intake: Oral 240 210 Other: # Voids 1 - Exam Examination remains unchanged. 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 This probably triggered by recent Covid infection. 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 * MRI of the brain without contrast was normal. No acute process. I personally reviewed MRI agree with the findings. Recommend continue prednisone 60 mg daily for 5 days, and then decrease by 10 mg daily until off. * Valtrex 1 g 3 times a day for 7 days. * 2-D echo revealed normal left-ventricular size and systolic function. No significant abnormality on the Doppler. Bubble study is negative for shunt. Left atrial size is normal. * CTA of head and neck revealed widely patent vertebral and carotid arteries. No large vessel intracranial artery occlusion, significance stenosis or aneurysm. * Hemoglobin A1c 5.0 * Lipid panel with cholesterol 185, LDL 111, HDL 49 and triglycerides 119. * Neurologically clear for discharge.
== END 2023-01-14 18:31 | disposition home or self-care (01) ==
LOC: EC 13:22 → INTOOBSV 14:46 → 3SCARD 14:46 → UNDODISIN 01-14 18:42
PROVIDERS: ADMIT Internal Medicine; ATTEND Internal Medicine
DX: R29.810 Facial weakness (principal); G43.909 Migraine, unspecified, not intractable, without status migrainosus; F41.9 Anxiety disorder, unspecified; F32.A Depression, unspecified; F12.10 Cannabis abuse, uncomplicated; E66.9 Obesity, unspecified; Z68.39 Body mass index [BMI] 39.0-39.9, adult; Z86.16 Personal history of COVID-19; Z86.69 Personal history of other diseases of the nervous system and sense organs; Z79.899 Other long term (current) drug therapy; Z88.1 Allergy status to other antibiotic agents; Z88.2 Allergy status to sulfonamides
CPT/HCPCS: 96372; 96374; 96361; 99291; 36415; 93005; 93306; 80061; 80053; 80048; 82550; 83735; 84484; 85025 ×2; 85610; 85730; 81001; 84703; 80306; 83036; 70496; 70450; 70498; 70551; G0378 ×2; J1644; J3490; J7512 ×2; Q9967; 96360